=== PATIENT | female | born 1950 | race Asian ===

== ENCOUNTER 2017-05-16 14:42 | Outpatient (CLI) | payer OTHER | END 2017-05-16 18:11 | disposition home or self-care (01) | LOC: SMA 14:42 | PROVIDERS: ATTEND Internal Medicine Hospice and Palliative Medicine | DX: C84.00 Mycosis fungoides, unspecified site (principal); R92.2 Inconclusive mammogram; Z85.3 Personal history of malignant neoplasm of breast | CPT/HCPCS: G0206 ==

== ENCOUNTER 2018-05-17 14:07 | Outpatient (CLI) | payer OTHER | END 2018-05-17 21:14 | disposition home or self-care (01) | LOC: SMA 14:07 | PROVIDERS: ATTEND Internal Medicine Hospice and Palliative Medicine | DX: C50.911 Malignant neoplasm of unspecified site of right female breast (principal); Z90.11 Acquired absence of right breast and nipple | CPT/HCPCS: 77065 ==